=== PATIENT | male | born 1995 | race Caucasian/White ===

== ENCOUNTER 2020-05-21 20:15 | Emergency (ER) | payer OTHER | END 2020-05-22 00:47 | disposition home or self-care (01) | LOC: FER 20:15 | DX: S51.812A Laceration without foreign body of left forearm, initial encounter (principal); E10.9 Type 1 diabetes mellitus without complications; W26.8XXA Contact with other sharp object(s), not elsewhere classified, initial encounter; Y92.009 Unspecified place in unspecified non-institutional (private) residence as the place of occurrence of the external cause ==